=== PATIENT | female | born 1960 | race Caucasian/White ===

== ENCOUNTER 2018-07-29 14:55 | Emergency (ER) | payer BC, OTHER ==
[~2018-07-29] VITALS: Ht 160 cm; Wt 65.4 kg
[2018-07-29 15:14] VITALS: BP 104/71
--- NOTE | 2018-07-29 15:23 | NUR ---
PT AMB TO BED 3
--- NOTE | 2018-07-29 15:30 | NUR ---
PT TO ED W C/O R HAND PAIN X 2 MOS. PT DENIES INJURY OR TRAUMA. PT HAS FULL ROM, PULSES PRESENT, CMS INTACT. NO OBVIOUS SWELLING NOTED. PT PLACED INTO BED, PENDING MD PHAM.
[2018-07-29 16:08] VITALS: BP 104/71
== END 2018-07-29 16:09 | disposition home or self-care (01) ==
LOC: MED 14:55
DX: M19.041 Primary osteoarthritis, right hand (principal)
CPT/HCPCS: 73130; 99283; Q0092